=== PATIENT | male | born 1955 | race Caucasian/White ===

== ENCOUNTER 2020-11-30 10:25 | Inpatient (IN) | payer MEDICARE, OTHER ==
[~2020-11-30] VITALS: Ht 182.9 cm; Wt 65.0 kg
--- NOTE | 2020-11-30 11:17 | PHYS DOC ---
Past History Past Medical History: Hypertension, Other Additional Past Medical Histor: Chronis neck pain Past Surgical History: Other Additional Past Surgical Histo: EYE Alcohol Use: None General Adult EDM: Chief Complaint: DIZZY/LIGHT HEADED HPI: HPI: Patient is a 64-year-old male sent over from his primary care provider's office for near syncopal episode this morning. Patient was getting up to use the restroom when he suddenly became weak and fell to the ground. Patient states he did not lose consciousness but felt like his arms and legs were weak and trem orous. Patient attempted to pull himself up twice but fell again. Denies any head injury. Patient did hit his chamorro on the doorway resulting in a small scrape. Patient denies any headaches, vision changes, nausea or vomiting, shortness of breath, chest pain, lower extremity edema, or decreased p.o. intake. Patient's metoprolol was recently halved. Review of Systems: Review of Systems: All other systems within normal limits except for as noted in the HPI Physical Exam: PE: Constitutional: Well developed, well nourished, no acute distress, non-toxic appearance. [] HENT: Normocephalic, atraumatic, bilateral external ears normal, nose normal. [] Eyes: PERRLA, conjunctiva normal, no discharge. [] Neck: No rigidity, supple, no stridor. [] Cardiovascular: Regular rate and rhythm, brisk cap refill [] Lungs & Thorax: Non labored symmetric respirations, no tachypnea or respiratory distress [] Abdomen: Soft, nondistended. Skin: Warm, dry, no erythema, no rash. [] Back: Unremarkable Extremities: No deformities, range of motion grossly intact, no lower extremity edema [] Neurologic: Alert and oriented X 3, no focal deficits noted. [] Psychologic: Affect normal, judgement normal, mood normal. [] Patient has cyanosis of fingers which is at his baseline due to a previous frostbite injury. Brisk cap refill in all fingers. Current Patient Data: Vital Signs: Vital Signs Date Time Temp Pulse Resp B/P (MAP) Pulse Ox O2 Delivery O2 Flow Rate FiO2 11/30/20 10:55 97.6 82 16 148/88 (108) 100 Room Air EKG: EKG: Normal sinus rhythm, heart rate 84 bpm, normal axis, no ST elevation or depression, no ectopy, normal intervals. [] Radiology/Procedures: Radiology/Procedures: ROCEDURE: CHEST PA & LATERAL PA and lateral chest. HISTORY: Syncope PA and lateral views were taken of the chest. Lungs are free of infiltrates. Heart is normal in size. There is no pleural effusion. There is a possible small hiatus hernia. There are old left rib fractures. IMPRESSION: 1. No acute chest disease. []PROCEDURE: CT HEAD WO CONTRAST CT HEAD/BRAIN WO Date: 11/30/2020 11:47 AM Clinical Indication: syncope Comparison: None. Technique: 5 mm axial tomographic images were obtained of the head without contrast. These were viewed on brain and bone windows. One or more of the following dose reduction techniques were utilized: Automated exposure control (AEC), Adjustment of mA and/or kV according to patient size, Use of iterative reconstruction technique such as ASiR, CT scan done according to ALARA and image gently/image wisely Findings: Mild nonspecific periventricular hypoattenuation is most consistent with chronic small vessel ischemic disease. No intra- or extra-axial mass or fluid collection. No acute hemorrhage. The ventricles are normal in size, shape, and morphology. The orosco-white matter junction is normal. The subarachnoid cisterns are patent. The visualized paranasal sinuses are normal. The visualized portions of the orbits and globes are normal. The mastoid air cells are clear. 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 Impression: No acute intracranial process. Heart Score: C/O Chest Pain: No Risk Factors: Risk Factors: DM, Current or recent (<one month) smoker, HTN, HLP, family history of CAD, obesity. Risk Scores: Score 0 - 3: 2.5% MACE over next 6 weeks - Discharge Home Score 4 - 6: 20.3% MACE over next 6 weeks - Admit for Clinical Observation Score 7 - 10: 72.7% MACE over next 6 weeks - Early Invasive Strategies Course & Med Decision Making: Course & Med Decision Making Pertinent Labs and Imaging studies reviewed. (See chart for details) positive orthostatic vital signs. Dragon Disclaimer: Dragon Disclaimer: This electronic medical record was generated, in whole or in part, using a voice recognition dictation system. Departure Departure: Impression: Primary Impression: Postural dizziness with near syncope Admitting Physician: Byron Nava Condition: STABLE Referrals: BYRON NAVA MD (PCP) MIC ARMSTRONG MD Nov 30, 2020 11:17
--- NOTE | 2020-11-30 11:17 | EKG ---
[address] [address] Test Date: 2020-11-30 Test Time: 10:51:31 Pat Name: JANE CONTRERASBillyMomo Department: Room: Gender: M Copy Chief: DARRICK : 1955 Requested By: MIC ARMSTRONG Order Number: [id number] Reading MD: Measurements Intervals [place] Rate: 84 P: -5 OK: 182 QRS: 24 QRSD: 84 T: 35 QT: 360 QTc: 429 Interpretive Statements SINUS RHYTHM LOW LIMB LEAD VOLTAGE NO SPECIFIC ECG ABNORMALITIES RI6.02 No previous ECG available for comparison
[2020-11-30 11:24] LABS: BASO # 0.1 x10^3/uL (0.0-0.2); BASO % 1 % (0-3); EOS # 0.2 x10^3/uL (0.0-0.7); EOS % 2 % (0-3); HEMATOCRIT 43.3 % (39.0-53.0); HEMOGLOBIN 14.6 g/dL (13.0-17.5); LYMPH # 1.2 x10^3/uL (1.0-4.8); LYMPH % 14 % (24-48); MEAN CORPUSCULAR HEMOGLOBIN 31 pg (25-35); MEAN CORPUSCULAR HGB CONC 34 g/dL (31-37); MEAN CORPUSCULAR VOLUME 93 fL (79-100); MONO # 0.6 x10^3/uL (0.0-1.1); MONO % 7 % (0-9); NEUT # 6.6 x10^3uL (1.8-7.7); NEUT % 76 % (31-73); PLATELET COUNT 347 x10^3/uL (140-400); RED BLOOD COUNT 4.67 x10^6/uL (4.30-5.70); RED CELL DISTRIBUTION WIDTH 12.9 % (11.5-14.5); WHITE BLOOD COUNT 8.6 x10^3/uL (4.0-11.0)
[2020-11-30 11:39] LABS: BACTERIA,URINE 0 /HPF (0-FEW); BILIRUBIN,URINE NEG (NEG); CLARITY,URINE CLEAR; COLOR,URINE YELLOW; GLUCOSE,URINE NEG (NEG); NITRITE,URINE NEG (NEG); RBC,URINE OCC /HPF (0-2); SQUAMOUS EPITHELIAL CELL,UR OCC /LPF; UROBILINOGEN,URINE 0.2 mg/dL (0.2 mg/dL); WBC,URINE OCC /HPF (0-4)
[2020-11-30 11:44] LABS: CALCIUM 9.4 mg/dL (8.5-10.1); CREATININE 0.9 mg/dL (0.7-1.3); GFR 84.4; POTASSIUM 3.9 mmol/L (3.5-5.1)
[2020-11-30 11:55] LABS: ALBUMIN 4.6 g/dL (3.4-5.0); ALBUMIN/GLOBULIN RATIO 1.4 (1.0-1.7); MAGNESIUM 1.8 mg/dL (1.8-2.4); PHOSPHORUS 3.1 mg/dL (2.6-4.7); TOTAL BILIRUBIN 0.7 mg/dL (0.2-1.0)
--- NOTE | 2020-11-30 11:57 | RAD ---
CT HEAD/BRAIN WO Date: 11/30/2020 11:47 AM Clinical Indication: syncope Comparison: None. Technique: 5 mm axial tomographic images were obtained of the head without contrast. These were view ed on brain and bone windows. One or more of the following dose reduction techniques were utilized: A utomated exposure control (AEC), Adjustment of mA and/or kV according to patient size, Use of iterati ve reconstruction technique such as ASiR, CT scan done according to ALARA and image gently/image villa ly Findings: Mild nonspecific periventricular hypoattenuation is most consistent with chronic small vessel ischemi c disease. No intra- or extra-axial mass or fluid collection. No acute hemorrhage. The ventricles are normal in size, shape, and morphology. The orosco-white matter junction is normal. The subarachnoid ci sterns are patent. The visualized paranasal sinuses are normal. The visualized portions of the orbits and globes are no rmal. The mastoid air cells are clear. The chef broiler or fry topogram shows no lytic lesion or fracture. Impression: No acute intracranial process. Electronically signed by: Wilian Medellin MD (11/30/2020 11:55 AM) [id number]
--- NOTE | 2020-11-30 12:09 | RAD ---
PA and lateral chest. HISTORY: Syncope PA and lateral views were taken of the chest. Lungs are free of infiltrates. Heart is normal in size. There is no pleural effusion. There is a possible small hiatus hernia. There are old left rib fractu res. IMPRESSION: 1. No acute chest disease. Electronically signed by: Ludwin Mojica MD (11/30/2020 12:07 PM) [id number]
[2020-11-30] MEDS ORDERED: IV NORMAL SALINE 1,000ML 1,000 ML IV ONE (12:15)
[2020-11-30] MEDS ORDERED: CYCL-331 PO (14:29)
--- NOTE | 2020-11-30 14:48 | NUR ---
PATIENT IS A 64 Y O MALE , ARRIVED VIA EMS TO ROOM 111. PATIENT IS CALM AND COOPERATIVE UPON ASSESSMENT, A/O X 4, DENIED PAIN, STATED HE WAS LIGHTHEADED LIST NIGHT BUT CURRENTLY DENIED ANY DIZZINESS AND LIGHTHEADEDNESS, DENIED N/V. PATIENT STATED HE HAD HIS COVID VACCINES X2, SECOND ONE WAS GIVEN ON 11/19/2020. PATIENT IS ORIENTED TO ROOM AND HOSPITAL POLICIES. PATIENT IS CURRENTLY IN A BED RESTING COMFORTABLY.
[2020-11-30 14:55] VITALS: BP 158/84
[2020-11-30] MEDS ORDERED: METO25TA4 PO (15:27)
[2020-11-30 15:57] VITALS: BP 143/84
[2020-11-30 16:01] VITALS: BP 153/80
[2020-11-30 16:02] VITALS: BP 128/85
[2020-11-30] MEDS: CYCLOBENZAPRINE 10 MG TABLET. PO SCH (20:56)
[2020-11-30 21:00] VITALS: BP 143/90
[2020-11-30 23:04] VITALS: BP 143/57
[2020-12-01] MEDS ORDERED: CALCIUM CARBONATE 500 MG TAB.CHEW PO PRN (00:45)
[2020-12-01 04:34] VITALS: BP 164/87
[2020-12-01 08:32] VITALS: BP 164/87
[2020-12-01] MEDS: CYCLOBENZAPRINE 10 MG TABLET. PO SCH (08:32)
[2020-12-01] MEDS ORDERED: METOPROLOL TART IMMED RELEASE 25 MG TABLET. PO SCH (09:00)
--- NOTE | 2020-12-03 10:03 | DS ---
DATE OF DISCHARGE: 12/01/2020 HOSPITAL COURSE: A 64-year-old male who came in with generalized weakness. The patient had a syncopal spell, claims he did not lose consciousness, but felt like his arms, legs were out of control. As a result of this, the patient was admitted to the hospital for further evaluation of syncope. He denied headaches, visual changes or the like there. However, the patient was markedly dehydrated and as a result of this, was given IV fluids. The patient made excellent progress. He received PT, OT. CT head was unremarkable. Chest x-ray was unremarkable. The patient's EKG showed sinus rhythm. The patient made excellent progress during the rest of his hospitalization and was discharged home. IMPRESSION: Syncope, dehydration, essential hypertension. The patient discharged on a heart healthy diet, decreased activity, and make further evaluation on him as an outpatient. TIM NAVA MD DR: MAGUE/vishal JOB#: [id number] / [id number]
== END 2020-12-01 10:00 | disposition home or self-care (01) | DRG 74 ==
LOC: ER 10:25 → 1 SOUTH 12:22
PROVIDERS: ADMIT Family Medicine; ATTEND Family Medicine
DX: G90.8 Other disorders of autonomic nervous system (principal); E86.0 Dehydration; R53.1 Weakness; R42 Dizziness and giddiness; I10 Essential (primary) hypertension; G89.29 Other chronic pain; Z82.49 Family history of ischemic heart disease and other diseases of the circulatory system; Z87.891 Personal history of nicotine dependence
CPT/HCPCS: 36415; 70450; 71046; 80053; 81001; 83605; 83735; 83880; 84100; 84443; 84484; 85025; 85379; 86140; 93005; 96360; 99285-25; J7030